=== PATIENT | male | born 1975 | race Two or more races ===

== ENCOUNTER → 2017-04-30 | Outpatient (CLI) | payer OTHER ==
[2014-11-24 15:19] VITALS: BP 172/105
--- NOTE | 2017-04-30 09:00 | KCIC ---
EXAM: Abdomen sonogram. HISTORY: Elevated liver function laboratory values. TECHNIQUE: Sonographic imaging of the abdomen was performed. COMPARISON: None. FINDINGS: There is hepatic steatosis. No focal hepatic lesion is seen. The gallbladder is unremarkable. The common bile duct is normal in caliber. The right kidney measures 12.4 cm qveq-hc-tent and the left kidney measures 13.0 cm [id number]. There is a 3.7 cm simple appearing cyst within the lower pole the right kidney. There are echogenic foci within both kidneys, possibly artifactual or due to nonobstructing stones or vascular calcifications. There is no hydronephrosis. The spleen is normal in size. The pancreas is unremarkable. The aorta is normal in caliber. The inferior vena cava is patent. IMPRESSION: 1. Hepatic steatosis. 2. 3.7 cm right renal cyst. 3. Tiny echogenic foci within both kidneys, artifactual or due to tiny nonobstructing stones or vascular calcifications. Electronically signed by: Aubrie Rae MD (04/30/2017 8:57 AM) [id number]
== END | disposition home or self-care (01) ==
LOC: KCIC US 07:53
PROVIDERS: ATTEND Family Medicine
DX: K76.0 Fatty (change of) liver, not elsewhere classified (principal); N28.1 Cyst of kidney, acquired; R79.89 Other specified abnormal findings of blood chemistry
CPT/HCPCS: 76700